=== PATIENT | female | born 1990 | race American Indian/Alaskan Native ===

== ENCOUNTER 2016-07-29 19:33 | Emergency (ER) | payer OTHER ==
[2016-07-29 19:33] VITALS: BMI 32.9
[2016-07-29 19:38] VITALS: BP 116/81; PULSE 95; RESP 16; TEMP 99.2; O2SAT 100
--- NOTE | 2016-07-29 19:49 | ED PDOC ---
Arrival/HPI - General Historian: Patient - History of Present Illness Time/Duration: Other (3 days) Quality: Aching Context: Home - General Chief Complaint: ENT Problem Time Seen by Provider: 07/29/16 19:45 - History of Present Illness Narrative History of Present Illness (Text): 07/29/16 19:46 This 26 yo female presents to this ED c/o sore throat x 3 days. Patient stated she has been taking PCN without relief of symptoms. Patient admits having antibiotic in the house from previous infection. Patient noted a mild right earache x 1 day. Denies fever, sick contact, sob, rash, or recent travel. (Myah Wilson) Past Medical History - Provider Review Nursing Documentation Reviewed: Yes - Cardiac Hx Cardiac Disorders: No - Pulmonary Hx Respiratory Disorders: No - Neurological Hx Neurological Disorder: No - HEENT Hx HEENT Disorder: No - Renal Hx Renal Disorder: No - Endocrine/Metabolic Hx Endocrine Disorders: No - Hematological/Oncological Hx Blood Disorders: No - Integumentary Hx Dermatological Disorder: No - Musculoskeletal/Rheumatological Other/Comment: scoliosis - Gastrointestinal Hx Gastrointestinal Disorders: No - Genitourinary/Gynecological Hx Genitourinary Disorders: No - Psychiatric Hx Psychophysiologic Disorder: No Hx Substance Use: No Family/Social History - Physician Review Nursing Documentation Reviewed: Yes Family/Social History: No Known Family HX Smoking Status: Never Smoked Hx Alcohol Use: Yes Hx Substance Use: No Allergies/Home Meds Allergies/Adverse Reactions: Allergies No Known Allergies Allergy (Verified 07/29/16 19:34) Review of Systems - Review of Systems Constitutional: Normal. absent: Fatigue, Weight Change, Fevers Eyes: Normal ENT: Sore Throat, Other (see hpi) Respiratory: Normal. absent: SOB, Cough, Sputum, Wheezing Cardiovascular: Normal. absent: Chest Pain, Palpitations Gastrointestinal: Normal. absent: Abdominal Pain, Nausea, Vomiting Genitourinary Female: Normal Musculoskeletal: Normal Skin: Normal Neurological: Normal Endocrine: Normal Hemo/Lymphatic: Normal Psychiatric: Normal Physical Exam Temperature: Afebrile Blood Pressure: Normal Pulse: Regular Respiratory Rate: Normal Appearance: Positive for: Well-Appearing, Non-Toxic, Comfortable Pain Distress: None Mental Status: Positive for: Alert and Oriented X 3 - Systems Exam Head: Present: Atraumatic, Normocephalic Pupils: Present: PERRL Extroacular Muscles: Present: EOMI Conjunctiva: Present: Normal Mouth: Present: Moist Mucous Membranes Pharnyx: Present: Normal. No: ERYTHEMA, EXUDATE, TONSILS ENLARGED Neck: Present: Normal Range of Motion Respiratory/Chest: Present: Clear to Auscultation, Good Air Exchange. No: Respiratory Distress, Accessory Muscle Use Cardiovascular: Present: Regular Rate and Rhythm, Normal S1, S2. No: Murmurs Abdomen: Present: Normal Bowel Sounds. No: Tenderness, Distention, Peritoneal Signs Back: Present: Normal Inspection Upper Extremity: Present: Normal Inspection. No: Cyanosis, Edema Lower Extremity: Present: Normal Inspection. No: Edema Neurological: Present: GCS=15, CN II-XII Intact, Speech Normal, Motor Func Grossly Intact, Normal Sensory Function, Normal Cerebellar Funct, Norm Deep Tendon Reflexes, Gait Normal, Memory Normal Skin: Present: Warm, Dry, Normal Color. No: Rashes Psychiatric: Present: Alert, Oriented x 3, Normal Insight Medical Decision Making Re-evaluation Time: 20:33 Reassessment Condition: Re-examined, Improved - Lab Interpretations I have reviewed the lab results: Yes Interpretation: No clinic. lab abnormalty (rapis strep was negative.) ED Course and Treatment: 07/29/16 20:30 Patient stated that her throat and painful. She stated she would like to have steroid medication for her sore throat. I reviewed with patient risk of taking steroid like Decadron which it includes AVN, glaucoma, dm, allergic reaction, liver problems, osteoporosis, just to cite a few. She understood risk, and she still insisted to have Decadron IM. (Myha Wilson) - Lab Interpretations Lab Results: Lab Results 07/29/16 19:53: Grp A Beta Strep Ag Negative - Medication Orders Current Medication Orders: Discontinued Medications Dexamethasone (Decadron Inj) 10 mg IM STAT STA Stop: 07/29/16 20:31 Last Admin: 07/29/16 20:35 Dose: 10 mg Lidocaine HCl (Lidocaine 2% Viscous) 15 ml MM STAT STA Stop: 07/29/16 20:31 Last Admin: 07/29/16 20:35 Dose: 15 ml Disposition/Present on Arrival - Present on Arrival Any Indicators Present on Arrival: No History of DVT/PE: No History of Uncontrolled Diabetes: No Urinary Catheter: No History of Decub. Ulcer: No History Surgical Site Infection Following: None - Disposition Have Diagnosis and Disposition been Completed?: Yes Disposition Time: 20:35 Patient Plan: Discharge - Disposition Diagnosis: Pharyngitis Disposition: HOME/ ROUTINE Condition: IMPROVED Discharge Instructions (ExitCare): Pharyngitis (ED) Additional Instructions: Call private doctor for follow up visit in 2-3 days. Take medication as instructed. Return to emergency if symptoms worsen. Prescriptions: Lidocaine 2% Viscous 15 ml PO QID PRN #1 bottle PRN Reason: Sore Throat Referrals: Dmitriy Rider MD [Primary Care Provider] - Follow up with primary Forms: WORK NOTE
== END 2016-07-29 20:43 | disposition home or self-care (01) ==
LOC: ED 19:33
DX: J02.9 Acute pharyngitis, unspecified (principal)
CPT/HCPCS: 81025; 87070; 87430; 96372; 99282; J1100

== ENCOUNTER 2017-03-19 18:55 | Emergency (ER) | payer BC, OTHER ==
[2017-03-19 18:56] VITALS: BMI 32.9
[2017-03-19 19:35] VITALS: PULSE 70; RESP 18; TEMP 99.1; O2SAT 98
--- NOTE | 2017-03-19 20:35 | ED PDOC ---
Arrival/HPI - General Chief Complaint: Finger,Hand,&Wrist Time Seen by Provider: 03/19/17 20:28 Historian: Patient - History of Present Illness Narrative History of Present Illness (Text): 03/19/17 20:29 This 26 yo female presents to this ED c/o right wrist pain x STUBBER. Patient stated after lining forward while sitting, she fell on the floor. Patient stated wrist pain is mild. Denies head injury or neck pain. Denies elbow or shoulder pain. Denies other somatic complains. Time/Duration: Prior to Arrival Quality: Aching Context: Work Past Medical History - Provider Review Nursing Documentation Reviewed: Yes - Cardiac Hx Cardiac Disorders: No - Pulmonary Hx Respiratory Disorders: No - Neurological Hx Neurological Disorder: No - HEENT Hx HEENT Disorder: No - Renal Hx Renal Disorder: No - Endocrine/Metabolic Hx Endocrine Disorders: No - Hematological/Oncological Hx Blood Disorders: No - Integumentary Hx Dermatological Disorder: No - Musculoskeletal/Rheumatological Other/Comment: scoliosis - Gastrointestinal Hx Gastrointestinal Disorders: No - Genitourinary/Gynecological Hx Genitourinary Disorders: No - Psychiatric Hx Psychophysiologic Disorder: No Hx Substance Use: No Family/Social History - Physician Review Nursing Documentation Reviewed: Yes Family/Social History: Other (noncontributory) Smoking Status: Never Smoked Hx Alcohol Use: Yes Hx Substance Use: No Allergies/Home Meds Allergies/Adverse Reactions: Allergies No Known Allergies Allergy (Verified 07/29/16 19:34) Review of Systems - Review of Systems Constitutional: Normal. absent: Fatigue, Weight Change, Fevers Eyes: Normal ENT: Normal Respiratory: Normal Cardiovascular: Normal Gastrointestinal: Normal Genitourinary Female: Normal Musculoskeletal: Other (wrist pain) Skin: Normal Neurological: Normal Endocrine: Normal Hemo/Lymphatic: Normal Psychiatric: Normal Physical Exam Vital Signs Temp Pulse Resp BP Pulse Ox 03/19/17 19:33 99.1 F 70 18 132/78 98 Temperature: Afebrile Blood Pressure: Normal Pulse: Regular Respiratory Rate: Normal Appearance: Positive for: Well-Appearing, Non-Toxic, Comfortable Pain Distress: None Mental Status: Positive for: Alert and Oriented X 3 - Systems Exam Head: Present: Atraumatic, Normocephalic Pupils: Present: PERRL Extroacular Muscles: Present: EOMI Conjunctiva: Present: Normal Mouth: Present: Moist Mucous Membranes Neck: Present: Normal Range of Motion. No: Meningeal Signs, MIDLINE TENDERNESS , Paraspinal Tenderness Back: Present: Normal Inspection. No: CVA Tenderness, Midline Tenderness, Paraspinal Tenderness Upper Extremity: Present: Normal Inspection, Normal ROM, NORMAL PULSES, Neurovascularly Intact, Capillary Refill < 2s. No: Edema Lower Extremity: Present: Normal Inspection, NORMAL PULSES, Normal ROM. No: Edema Neurological: Present: GCS=15, CN II-XII Intact, Speech Normal, Motor Func Grossly Intact Skin: Present: Warm, Dry, Normal Color. No: Rashes Psychiatric: Present: Alert, Oriented x 3, Normal Insight, Normal Concentration Medical Decision Making ED Course and Treatment: 03/19/17 20:36 Patient refused pain medication 03/19/17 21:16 t Re-evaluation Time: 21:16 Reassessment Condition: Re-examined, Improved - RAD Interpretation Narrative RAD Interpretations (Text): 03/19/17 21:17 Wrist x-rays: No Fx. Radiology Orders: 03/19/17 20:28 WRIST, RIGHT 3 VIEWS [RAD] Stat - Procedure PROCEDURE NOTE (Text): 03/19/17 21:17 cock up wrist split ordered Disposition/Present on Arrival - Present on Arrival Any Indicators Present on Arrival: No History of DVT/PE: No History of Uncontrolled Diabetes: No Urinary Catheter: No History of Decub. Ulcer: No History Surgical Site Infection Following: None - Disposition Have Diagnosis and Disposition been Completed?: Yes Diagnosis: Wrist pain Disposition: HOME/ ROUTINE Disposition Time: 21:18 Patient Plan: Discharge Condition: GOOD Discharge Instructions (ExitCare): Wrist Sprain (ED) Additional Instructions: [facility] Employee Regarding your Work Related Injury, you are instructed to do all of the following by next day: 1. Notify [facility] Employee Health Department of the sustained injury and arrange for any follow-up appointments if needed during the next business day. If the office is closed or no answer is received, please leave a detailed voice message. Message should include your full name, department and human resources operations manager, date of injury, date of ED visit if applicable. Employee Health can be reached at [phone]. 2. If there is time lost, notify [facility] Human Resources Department of the work related injury the next business day at [phone]. Prescriptions: Ibuprofen [Motrin] 600 mg PO Q8 PRN #20 tab PRN Reason: Pain, Severe (8-10) Forms: [employer] (Samoan)
[2017-03-19 21:36] VITALS: BP 122/72
--- NOTE | 2017-03-20 08:57 | RAD ---
PROCEDURE: Right Wrist Radiographs. HISTORY: pain s/p fall COMPARISON: None. FINDINGS: BONES: Normal. No fracture. JOINTS: Normal. No dislocation. SOFT TISSUES: Normal. OTHER FINDINGS: None. IMPRESSION: Normal right wrist radiographs.
== END 2017-03-19 21:36 | disposition home or self-care (01) ==
LOC: ED 18:55
DX: M25.531 Pain in right wrist (principal)

== ENCOUNTER 2017-11-21 21:34 | Emergency (ER) | payer BC, OTHER ==
[2017-11-21 22:06] VITALS: BP 114/63; PULSE 79; RESP 16; TEMP 98.1; O2SAT 98; BMI 34.2
--- NOTE | 2017-11-21 22:37 | ED PDOC ---
Arrival/HPI <Konrad Marcum - Last Filed: 11/21/17 22:50> - General Historian: Patient - History of Present Illness Time/Duration: Other (1 day since this morning) Symptom Onset: Gradual Symptom Course: Unchanged Activities at Onset: Light Context: Home <Christine Voss PA-C - Last Filed: 11/22/17 01:01> - General Chief Complaint: Cough, Cold, Congestion Time Seen by Provider: 11/21/17 22:17 - History of Present Illness Narrative History of Present Illness (Text): 11/21/17 22:34 27 year old female, with no significant past medical history, presents to the emergency department complaining of one day history of runny nose, nasal congestion, and sore throat since this morning. Patient denies any fever, chills , cough, chest pain, shortness of breath, nausea, vomiting, diarrhea, urinary symptoms, back pain, neck pain, headache, dizziness, or any other complaints. PMD: Dr. Rider (Christine Voss PA-C) Past Medical History - Provider Review Nursing Documentation Reviewed: Yes - Infectious Disease Hx of Infectious Diseases: None - Cardiac Hx Cardiac Disorders: No - Pulmonary Hx Respiratory Disorders: No - Neurological Hx Neurological Disorder: No - HEENT Hx HEENT Disorder: No - Renal Hx Renal Disorder: No - Endocrine/Metabolic Hx Endocrine Disorders: No - Hematological/Oncological Hx Blood Disorders: No - Integumentary Hx Dermatological Disorder: No - Musculoskeletal/Rheumatological Other/Comment: scoliosis - Gastrointestinal Hx Gastrointestinal Disorders: No - Genitourinary/Gynecological Hx Genitourinary Disorders: No - Psychiatric Hx Psychophysiologic Disorder: No Hx Substance Use: No - Anesthesia Hx Anesthesia: No <Christine Voss PA-C - Last Filed: 11/22/17 01:01> Family/Social History - Physician Review Nursing Documentation Reviewed: Yes Family/Social History: No Known Family HX Smoking Status: Never Smoked Hx Alcohol Use: Yes Frequency of alcohol use: Socially Hx Substance Use: No <Christine Voss PA-C - Last Filed: 11/22/17 01:01> Allergies/Home Meds <Konrad Marcum - Last Filed: 11/21/17 22:50> <Christine Voss PA-C. - Last Filed: 11/22/17 01:01> Allergies/Adverse Reactions: Allergies No Known Allergies Allergy (Verified 11/21/17 22:04) Review of Systems - Physician Review All systems were reviewed & negative as marked: Yes - Review of Systems Constitutional: absent: Fevers, Other (Chills) ENT: Sore Throat, Rhinorrhea, Other (Nasal Congestion) Respiratory: absent: SOB, Cough Cardiovascular: absent: Chest Pain Gastrointestinal: absent: Diarrhea, Nausea Genitourinary Female: absent: Dysuria, Frequency, Hematuria Musculoskeletal: absent: Back Pain, Neck Pain Neurological: absent: Headache, Dizziness <Christine Voss PA-C - Last Filed: 11/22/17 01:01> Physical Exam Vital Signs Reviewed: Yes Temperature: Afebrile Blood Pressure: Normal Pulse: Regular Respiratory Rate: Normal Appearance: Positive for: Well-Appearing, Non-Toxic, Comfortable Pain Distress: None Mental Status: Positive for: Alert and Oriented X 3 - Systems Exam Head: Present: Atraumatic, Normocephalic Pupils: Present: PERRL Extroacular Muscles: Present: EOMI Conjunctiva: Present: Normal. No: Injected Ears: Present: Normal, NORMAL TM, Normal Canal. No: Erythema, TM Bulging, Fluid Mouth: Present: Moist Mucous Membranes Pharnyx: Present: Normal. No: ERYTHEMA, EXUDATE, Peritonsilar Swelling, Uvular Deviation, Muffled/Hoarse Voice, Strider Nose (Internal): Present: Moist, Edematous (Mild Edema to the nasal turbinates) , Clear Mucous, Rhinorrhea. No: No Active Bleeding, Purulent Mucous, Septal Deviation, Epistaxis Neck: Present: Normal Range of Motion. No: Meningeal Signs, Lymphadenopathy Respiratory/Chest: Present: Clear to Auscultation, Good Air Exchange. No: Respiratory Distress, Accessory Muscle Use Cardiovascular: Present: Regular Rate and Rhythm, Normal S1, S2. No: Murmurs Back: Present: Normal Inspection Upper Extremity: Present: Normal Inspection. No: Cyanosis, Edema Lower Extremity: Present: Normal Inspection. No: Edema Neurological: Present: GCS=15, CN II-XII Intact, Speech Normal Skin: Present: Warm, Dry, Normal Color. No: Rashes Psychiatric: Present: Alert, Oriented x 3, Normal Insight, Normal Concentration <Christine Voss PA-C - Last Filed: 11/22/17 01:01> Vital Signs Temp Pulse Resp BP Pulse Ox 11/21/17 23:45 98 11/21/17 22:05 98.1 F 79 16 114/63 98 Medical Decision Making <Konrad Marcum - Last Filed: 11/21/17 22:50> <Christine Voss PA-C - Last Filed: 11/22/17 01:01> ED Course and Treatment: 11/21/17 22:30 Impression: 27 year old female presents complaining of runny nose, nasal congestion, and sore throat that began today morning. Plan: -- pseudophed po -- flonase Progress Notes: 11/21/17 22:36 On re-evaluation, patient is in no acute distress. I have discussed the plan with the patient, who expresses understanding. Patient in agreement with plan to be discharged home. Patient is stable for discharge. Patient was instructed to follow up with physician or return if symptoms worsen or new concerning symptoms arise. (Christine Voss PA-C) - Medication Orders Current Medication Orders: Discontinued Medications Fluticasone Propionate (Flonase) 2 actuation NS STAT STA Stop: 11/21/17 22:40 Last Admin: 11/21/17 23:38 Dose: 2 applic Pseudoephedrine HCl (Sudafed Tab) 60 mg PO STAT STA Stop: 11/21/17 22:40 Last Admin: 11/21/17 23:04 Dose: 60 mg - PA / COMPO CASTER / Resident Statement LIZETT has reviewed & agrees with the documentation as recorded. <Konrad Marcum - Last Filed: 11/21/17 22:50> - PA / COMPO CASTER / Resident Statement / has reviewed & agrees with the documentation as recorded. - Scribe Statement The provider has reviewed the documentation as recorded by the Scribe <Christine Voss PA-C - Last Filed: 11/22/17 01:01> - Scribe Statement Yvonne Logan Provider Scribe Attestation: All medical record entries made by the Scribe were at my direction and personally dictated by me. I have reviewed the chart and agree that the record accurately reflects my personal performance of the history, physical exam, medical decision making, and the department course for this patient. I have also personally directed, reviewed, and agree with the discharge instructions and disposition. (Christine Voss PA-C) Disposition/Present on Arrival <Konrad Marcum - Last Filed: 11/21/17 22:50> - Present on Arrival Any Indicators Present on Arrival: No History of DVT/PE: No History of Uncontrolled Diabetes: No Urinary Catheter: No History of Decub. Ulcer: No History Surgical Site Infection Following: None - Disposition Have Diagnosis and Disposition been Completed?: Yes Disposition Time: 22:36 Patient Plan: Discharge <Christine Voss PA-C - Last Filed: 11/22/17 01:01> - Disposition Diagnosis: Rhinitis Disposition: HOME/ ROUTINE Condition: STABLE Discharge Instructions (ExitCare): Cough, Runny Nose, and the Common Cold (DC) Additional Instructions: Thank you for letting us take care of you today. You were treated for rhinitis, URI. The emergency medical care you received today was directed at your acute symptoms. If you were prescribed any medication, please fill it and take as directed. It may take several days for your symptoms to resolve. Return to the Emergency Department if your symptoms worsen, do not improve, or if you have any other problems. Please contact your doctor in 2 days for re-evaluation and follow up. Bring any paperwork you were given at discharge with you along with any medications you are taking to your follow up visit. Our treatment cannot replace ongoing medical care by a primary care provider (PCP) outside of the emergency department. Thank you for allowing the [facility] team to be part of your care today. Prescriptions: Fluticasone Propionate [Flonase] 2 spr COLTEN DAILY #1 bottle Pseudoephedrine [Sudafed Tab] 60 mg PO TID PRN #30 tab PRN Reason: Nasal Congestion Referrals: Dmitriy Rider MD [Primary Care Provider] - Follow up with primary Forms: [employer] (Salvadorean), WORK NOTE
[2017-11-21] MEDS ORDERED: Fluticasone Nasal 50 mcg/Spray NS STA (22:39)
== END 2017-11-22 00:56 | disposition home or self-care (01) ==
LOC: ED 21:34
DX: J31.0 Chronic rhinitis (principal)

== ENCOUNTER 2018-05-31 14:56 | Emergency (ER) | payer BC, OTHER ==
[2018-05-31 15:30] VITALS: BP 130/84; TEMP 98.5; BMI 34.2
--- NOTE | 2018-05-31 17:07 | ED PDOC ---
Arrival/HPI - General Chief Complaint: GI Problem Time Seen by Provider: 05/31/18 15:24 Historian: Patient - History of Present Illness Narrative History of Present Illness (Text): 05/31/18 15:24 Dixon Gibbons is a 28 year old female, with no significant past medical history, who presents to the emergency department for nausea and vomiting since last night. Patient notes reduced appetite secondary to nausea yesterday. Patient informs eating breakfast and has not vomited today. Patient states feel nauseous today which prompted her visit to the emergency department. Patient's last bowel movement was after lunch earlier today. Patient informs of normal appetite in the emergency department. Patient denies sick contact, but informs son recently recovered from flu. Patient denies any fevers, chills, headache, dizziness, m[address] pain, shortness of breath, dyspnea on exertion, cough, diaphoresis, abdominal pain, diarrhea, back pain, neck pain, dysuria, or any other complaint. Time/Duration: 24 hours (yesterday) Symptom Onset: Gradual Symptom Course: Unchanged Activities at Onset: Light Context: Home Past Medical History - Provider Review Nursing Documentation Reviewed: Yes - Infectious Disease Hx of Infectious Diseases: None - Cardiac Hx Cardiac Disorders: No - Pulmonary Hx Respiratory Disorders: No - Neurological Hx Neurological Disorder: No - HEENT Hx HEENT Disorder: No - Renal Hx Renal Disorder: No - Endocrine/Metabolic Hx Endocrine Disorders: No - Hematological/Oncological Hx Blood Disorders: No - Integumentary Hx Dermatological Disorder: No - Musculoskeletal/Rheumatological Other/Comment: scoliosis - Gastrointestinal Hx Gastrointestinal Disorders: No - Genitourinary/Gynecological Hx Genitourinary Disorders: No - Psychiatric Hx Psychophysiologic Disorder: No Hx Substance Use: No - Anesthesia Hx Anesthesia: No Family/Social History - Physician Review Nursing Documentation Reviewed: Yes Family/Social History: Unknown Family HX Smoking Status: Never Smoked Hx Alcohol Use: Yes Hx Substance Use: No Allergies/Home Meds Allergies/Adverse Reactions: Allergies No Known Allergies Allergy (Verified 11/21/17 22:04) Review of Systems - Physician Review All systems were reviewed & negative as marked: Yes - Review of Systems Constitutional: absent: Fevers, Other (chills) Respiratory: absent: SOB, Cough Cardiovascular: absent: Chest Pain, DEAL Gastrointestinal: Nausea, Vomiting. absent: Abdominal Pain, Diarrhea Genitourinary Female: absent: Dysuria Musculoskeletal: absent: Back Pain, Neck Pain Neurological: absent: Headache, Dizziness Endocrine: absent: Diaphoresis Physical Exam Vital Signs Reviewed: Yes Vital Signs Temp Pulse Resp BP Pulse Ox 05/31/18 15:09 98.5 F 97 H 18 130/84 97 Temperature: Afebrile Blood Pressure: Normal Pulse: Regular Respiratory Rate: Normal Appearance: Positive for: Well-Appearing, Non-Toxic, Comfortable Pain Distress: None Mental Status: Positive for: Alert and Oriented X 3 - Systems Exam Head: Present: Atraumatic, Normocephalic Pupils: Present: PERRL Extroacular Muscles: Present: EOMI Conjunctiva: Present: Normal Mouth: Present: Moist Mucous Membranes Neck: Present: Normal Range of Motion Respiratory/Chest: Present: Clear to Auscultation, Good Air Exchange. No: Respiratory Distress, Accessory Muscle Use Cardiovascular: Present: Regular Rate and Rhythm, Normal S1, S2. No: Murmurs Abdomen: Present: Normal Bowel Sounds. No: Tenderness, Distention, Peritoneal Signs, Rebound, Guarding Back: Present: Normal Inspection Upper Extremity: Present: Normal Inspection, NORMAL PULSES, Neurovascularly Intact. No: Cyanosis, Edema Lower Extremity: Present: Normal Inspection, NORMAL PULSES, Neurovascularly Intact. No: Edema Neurological: Present: GCS=15, CN II-XII Intact, Speech Normal, Motor Func Grossly Intact, Normal Sensory Function Skin: Present: Warm, Dry, Normal Color. No: Rashes Psychiatric: Present: Alert, Oriented x 3, Normal Insight, Normal Concentration Medical Decision Making ED Course and Treatment: 05/31/18 15:24 Impression: Patient is a 28 year old female who presents to the emergency department who complaints of nausea and vomiting since yesterday. Patient notes reduced appetite secondary to nausea yesterday. Patient informs eating breakfast today with no vomiting. Patient denies fevers, chills, or diarrhea. Exam unremarkable. Plan: -- POC Urine Test -- Urinalysis -- Reassess and disposition Prior Visits: Notes and results from previous visits were reviewed. Progress Notes: - Scribe Statement The provider has reviewed the documentation as recorded by the Scribe Oneal Louis All medical record entries made by the Scribe were at my direction and personally dictated by me. I have reviewed the chart and agree that the record accurately reflects my personal performance of the history, physical exam, medical decision making, and the department course for this patient. I have also personally directed, reviewed, and agree with the discharge instructions and disposition. Disposition/Present on Arrival - Present on Arrival Any Indicators Present on Arrival: No History of DVT/PE: No History of Uncontrolled Diabetes: No Urinary Catheter: No History of Decub. Ulcer: No History Surgical Site Infection Following: None - Disposition Have Diagnosis and Disposition been Completed?: Yes Diagnosis: Nausea and vomiting Disposition: HOME/ ROUTINE Disposition Time: 18:12 Patient Plan: Discharge Patient Problems: Current Active Problems Problem Status Onset Nausea and vomiting Acute Condition: STABLE Discharge Instructions (ExitCare): Nausea and Vomiting, Adult (DC), Clear Liquid Diet Additional Instructions: LALA CUMMINS, thank you for letting us take care of you today. Your provider was Renee Gamez MD and you were treated for NAUSEA. The emergency medical care you received today was directed at your acute symptoms. If you were prescribed any medication, please fill it and take as directed. It may take several days for your symptoms to resolve. Return to the Emergency Department if your symptoms worsen, do not improve, or if you have any other problems. Please contact your doctor in 1-2 days for a follow up appointment. Bring any paperwork you were given at discharge with you along with any medications you are taking to your follow up visit. Our treatment cannot replace ongoing medical care by a primary care provider outside of the emergency department. Thank you for allowing the [facility] team to be part of your care today. Referrals: Dmitriy Rider MD [Family Provider] - Follow up with primary Forms: [facility] ([place])
[2018-05-31 18:03] LABS: URINE BILIRUBIN NEGATIVE (NEGATIVE); URINE BLOOD NEGATIVE (NEGATIVE); URINE GLUCOSE (UA) NEGATIVE (NEGATIVE); URINE LEUKOCYTE ESTERASE NEGATIVE Leu/uL (NEGATIVE); URINE PROTEIN TRACE mg/dL (<30 mg/dL)
[2018-05-31 18:05] LABS: URINE APPEARANCE SLIGHT-CLOUDY (CLEAR); URINE COLOR YELLOW (YELLOW)
[2018-05-31 18:11] LABS: URINE CALCIUM OXALATE CRYSTALS SMALL /hpf; URINE WBC 0 - 2 /hpf (0-6)
[2018-05-31 18:26] VITALS: PULSE 77; RESP 16; O2SAT 98
== END 2018-05-31 18:25 | disposition home or self-care (01) ==
LOC: ED 14:56
DX: R11.2 Nausea with vomiting, unspecified (principal)

== ENCOUNTER 2018-06-17 12:57 | Emergency (ER) | payer BC, OTHER ==
[2018-06-17 13:04] VITALS: BMI 34.2
[2018-06-17 13:11] VITALS: RESP 18; TEMP 98.1
--- NOTE | 2018-06-17 13:26 | ED PDOC ---
Arrival/HPI - General Chief Complaint: GI Problem Time Seen by Provider: 06/17/18 12:58 Historian: Patient - History of Present Illness Narrative History of Present Illness (Text): 06/17/18 13:21 A 28 year old female with no significant past medical history, presents to the ED for feeling faint since this morning. Patient reports she started feeling jittery and like she was about to pass out. Patient reports she did not have br eakfast today and that she is on third day of her menstrual cycle. Patient notes symptoms worsen upon standing, and slightly improve when she sits down. Patient denies any past similar episodes, as well as any associated stress, anxiousness, fevers, chills, headache, dizziness, chest pain, shortness of breath, dyspnea on exertion, cough, abdominal pain, vomiting, diarrhea, back pain, neck pain, bowel changes, or any other complaints. Time/Duration: 4-6 hours Symptom Onset: Gradual Symptom Course: Unchanged Activities at Onset: Light Context: Work Past Medical History - Provider Review Nursing Documentation Reviewed: Yes - Infectious Disease Hx of Infectious Diseases: None - Cardiac Hx Cardiac Disorders: No - Pulmonary Hx Respiratory Disorders: No - Neurological Hx Neurological Disorder: No - HEENT Hx HEENT Disorder: No - Renal Hx Renal Disorder: No - Endocrine/Metabolic Hx Endocrine Disorders: No - Hematological/Oncological Hx Blood Disorders: No - Integumentary Hx Dermatological Disorder: No - Musculoskeletal/Rheumatological Other/Comment: scoliosis - Gastrointestinal Hx Gastrointestinal Disorders: No - Genitourinary/Gynecological Hx Genitourinary Disorders: No - Psychiatric Hx Psychophysiologic Disorder: No Hx Substance Use: No - Anesthesia Hx Anesthesia: No Family/Social History - Physician Review Nursing Documentation Reviewed: Yes Family/Social History: Unknown Family HX Smoking Status: Never Smoked Hx Alcohol Use: Yes Hx Substance Use: No Allergies/Home Meds Allergies/Adverse Reactions: Allergies No Known Allergies Allergy (Verified 06/17/18 13:04) Review of Systems - Physician Review All systems were reviewed & negative as marked: Yes - Review of Systems Constitutional: absent: Fatigue, Fevers Eyes: absent: Vision Changes ENT: absent: Hearing Changes, Rhinorrhea Respiratory: absent: SOB, Cough Cardiovascular: absent: Chest Pain Gastrointestinal: absent: Abdominal Pain, Diarrhea, Vomiting Genitourinary Female: Frequency. absent: Dysuria Musculoskeletal: absent: Back Pain, Neck Pain Skin: absent: Rash Neurological: Other (feeling faint ). absent: Headache, Speech Changes Endocrine: absent: Diaphoresis Hemo/Lymphatic: absent: Adenopathy Psychiatric: absent: Anxiety, Depression Physical Exam Vital Signs Reviewed: Yes Vital Signs Temp Pulse Resp BP Pulse Ox 06/17/18 13:10 98.1 F 74 18 138/80 99 Temperature: Afebrile Blood Pressure: Normal Pulse: Regular Respiratory Rate: Normal Appearance: Positive for: Well-Appearing, Non-Toxic, Comfortable Pain Distress: None Mental Status: Positive for: Alert and Oriented X 3 Finger Stick Blood Glucose: 96 - Systems Exam Head: Present: Atraumatic, Normocephalic Pupils: Present: PERRL Extroacular Muscles: Present: EOMI Conjunctiva: Present: Normal Mouth: Present: Moist Mucous Membranes Neck: Present: Normal Range of Motion Respiratory/Chest: Present: Clear to Auscultation, Good Air Exchange. No: Respiratory Distress, Accessory Muscle Use Cardiovascular: Present: Regular Rate and Rhythm, Normal S1, S2. No: Murmurs Abdomen: No: Tenderness, Distention, Peritoneal Signs Upper Extremity: Present: Normal Inspection. No: Cyanosis, Edema Lower Extremity: Present: Normal Inspection. No: Edema Neurological: Present: GCS=15, CN II-XII Intact, Speech Normal, Other (tremulous) Skin: Present: Warm, Dry, Normal Color. No: Rashes Psychiatric: Present: Alert, Oriented x 3, Normal Insight, Normal Concentration Medical Decision Making ED Course and Treatment: 06/17/18 13:30 Impression: A 28 year old female presents to the ED for feeling faint. Differential Diagnosis included but are not limited to: Near syncope due to dehydration vs anxiety Plan: -- EKG -- Labs -- Urinalysis -- Reassess and disposition Prior Visits: Notes and results from previous visits were reviewed. Progress Notes: 06/17/18 13:48 EKG: NSR @ 75 bpm. Normal intervals. No ST elevations. 06/17/18 14:33 Patient's blood work reviewed and normal. UA negative for UTI. Patient is feeling better after IVF. No lightheadedness when she stands and less tremors. She will f/u with her PMD and was advised to return to the ED if symptoms worsen or any other concerns. - Scribe Statement The provider has reviewed the documentation as recorded by the Scribe Desiree Hinklemed Provider Scribe Attestation: All medical record entries made by the Arun were at my direction and personally dictated by me. I have reviewed the chart and agree that the record accurately reflects my personal performance of the history, physical exam, medical decision making, and the department course for this patient. I have also personally directed, reviewed, and agree with the discharge instructions and disposition. Disposition/Present on Arrival - Present on Arrival Any Indicators Present on Arrival: No History of DVT/PE: No History of Uncontrolled Diabetes: No Urinary Catheter: No History of Decub. Ulcer: No History Surgical Site Infection Following: None - Disposition Have Diagnosis and Disposition been Completed?: Yes Diagnosis: Lightheaded Disposition: HOME/ ROUTINE Disposition Time: 14:34 Patient Plan: Discharge Condition: IMPROVED Discharge Instructions (ExitCare): Dizziness, Nonvertigo, (DC) Additional Instructions: LALA CUMMINS, thank you for letting us take care of you today. Your provider was Vasiliy Barker DO and you were treated for Lightheadedness. The emergency medical care you received today was directed at your acute symptoms. If you were prescribed any medication, please fill it and take as directed. It may take several days for your symptoms to resolve. Return to the Emergency Department if your symptoms worsen, do not improve, or if you have any other problems. Please contact your doctor or call one of the physicians/clinics you have been referred to that are listed on the Patient Visit Information form that is included in your discharge packet. Bring any paperwork you were given at discharge with you along with any medications you are taking to your follow up visit. Our treatment cannot replace ongoing medical care by a primary care provider outside of the emergency department. Thank you for allowing the [facility] team to be part of your care today. If you had an X-Ray or CT scan: A Radiologist will review the ED reading if any change in treatment is needed we will contact you. If you had a blood, urine, or wound culture: It will take several days for the results, if any change in treatment is needed we will contact you. If you had an STI test: It will take 48 hours for the results. Please call after 1 week if you have not heard back. Referrals: Dmitriy Rider MD [Primary Care Provider] - Follow up with primary Forms: [facility] ([place]), WORK NOTE
[2018-06-17] MEDS ORDERED: Sodium Chloride 0.9% 1,000 ML IV STA (13:36)
[2018-06-17 13:59] LABS: URINE BILIRUBIN NEGATIVE (NEGATIVE); URINE BLOOD MODERATE (NEGATIVE); URINE GLUCOSE (UA) NEGATIVE (NEGATIVE); URINE LEUKOCYTE ESTERASE TRACE Leu/uL (NEGATIVE); URINE PROTEIN NEGATIVE mg/dL (<30 mg/dL); URINE UROBILINOGEN 0.2 E.U./dL (<1 E.U./dL)
[2018-06-17 14:01] LABS: URINE APPEARANCE CLEAR (CLEAR); URINE COLOR YELLOW (YELLOW)
[2018-06-17 14:09] LABS: BLOOD UREA NITROGEN 8 mg/dL (7-21); CALCIUM 9.2 mg/dL (8.4-10.5); GFR NON-AFRICAN AMERICAN > 60
[2018-06-17 14:15] LABS: BASO # 0.05 K/mm3 (0.0-2.0); BASO % 0.6 % (0.0-3.0); EOS # 0.2 (0.0-0.7); EOS % 2.7 % (1.5-5.0); HEMOGLOBIN 11.8 g/dL (12.0-16.0); LYMPH # 3.7 (1.2-3.4); LYMPH % 44.4 % (22.0-35.0); MEAN CELL VOLUME 88.9 fl (80.0-105.0); MEAN CORPUSCULAR HGB CONC 31.5 g/dl (31.0-37.0); MEAN PLATELET VOLUME 9.6 fl (7.0-11.0); MONO # 0.5 (0.1-0.6); MONO % 5.5 % (1.0-6.0); RBC 4.22 10^6/uL (3.5-6.1); RED CELL DISTRIBUTION WIDTH 12.1 % (11.5-14.5); WHITE BLOOD COUNT 8.4 10^3/uL (4.5-11.0)
[2018-06-17 14:20] LABS: URINE BACTERIA MANY /hpf
[2018-06-17 14:58] VITALS: BP 136/77; PULSE 84; O2SAT 100
--- NOTE | 2018-06-18 03:10 | CARD ---
APPROVED REPORT Date of service: 06/17/2018 EKG Measurement Heart [id number] <Conclusion> Normal sinus rhythm with sinus arrhythmia Normal ECG
== END 2018-06-17 15:03 | disposition home or self-care (01) ==
LOC: ED 12:57
DX: R42 Dizziness and giddiness (principal)
CPT/HCPCS: 80048; 81001; 81025; 82948; 85025; 87086; 93005; 96360; 99283; J7030